=== PATIENT | male | born 1975 | race Caucasian/White ===

== ENCOUNTER 2020-07-01 19:30 | Emergency (ER) | payer BC, MEDICAID ==
[~2020-07-01] VITALS: Ht 188 cm; Wt 70.3 kg
[2020-07-01 19:50] VITALS: BP 136/78
--- NOTE | 2020-07-01 19:57 | NUR ---
Pt to ED 05 with steady gait. Awaiting ED MD lisa.
--- NOTE | 2020-07-01 19:57 | NUR ---
PT AMBULATED TO ER BED 5
[2020-07-01] MEDS ORDERED: KETOROLAC 30 MG/ML VIAL IM ONE ×2 (20:10)
--- NOTE | 2020-07-01 20:40 | NUR ---
X-Ray at bedside.
--- NOTE | 2020-07-01 20:43 | NUR ---
Sling placed by ENMT, toradol given with no adverse reaction.
--- NOTE | 2020-07-01 20:45 | NUR ---
PLACED SLING ON PT'S LEFT SHOULDER AND ADJUSTED IT FOR PT TO A POSITION OF COMFORT.
--- NOTE | 2020-07-01 21:30 | NUR ---
ACI given to pt with verbal understanding, pt ambulated off unit with steady gait and all belongings.
== END 2020-07-01 21:30 | disposition home or self-care (01) ==
LOC: MED 19:30
DX: M25.512 Pain in left shoulder (principal); Z88.0 Allergy status to penicillin
CPT/HCPCS: 73030; 96372; 99283; J1885